=== PATIENT | male | born 1950 | race Two or more races ===

== ENCOUNTER 2021-03-31 09:48 | Outpatient (CLI) | payer OTHER | END 2021-03-31 10:05 | disposition home or self-care (01) | LOC: SONOGRAMA 09:48 | PROVIDERS: ATTEND Internal Medicine | DX: N40.0 Benign prostatic hyperplasia without lower urinary tract symptoms (principal) ==

== ENCOUNTER 2021-06-23 12:34 | Outpatient (CLI) | payer OTHER | END 2021-06-23 12:35 | disposition home or self-care (01) | LOC: LAB 12:34 | PROVIDERS: ATTEND Urology | DX: R97.20 Elevated prostate specific antigen [PSA] (principal) ==

== ENCOUNTER 2021-07-24 07:28 | Outpatient (CLI) | payer OTHER | END 2021-07-24 07:29 | disposition home or self-care (01) | LOC: SONOGRAMA 07:28 | PROVIDERS: ATTEND Urology | DX: R97.20 Elevated prostate specific antigen [PSA] (principal) ==

== ENCOUNTER 2021-08-11 08:02 | Outpatient (CLI) | payer OTHER | END 2021-08-11 08:06 | disposition home or self-care (01) | LOC: TOM 08:02 | PROVIDERS: ATTEND Urology | DX: R97.20 Elevated prostate specific antigen [PSA] (principal) ==

== ENCOUNTER 2021-09-02 07:16 | Outpatient (CLI) | payer OTHER | END 2021-09-02 07:20 | disposition home or self-care (01) | LOC: NUCLEAR 07:16 | PROVIDERS: ATTEND Urology | DX: R97.20 Elevated prostate specific antigen [PSA] (principal) | CPT/HCPCS: 78803; A9503 ==

== ENCOUNTER 2025-03-12 07:40 | Outpatient (CLI) | payer OTHER | END 2025-03-12 07:42 | disposition home or self-care (01) | LOC: MRI 07:40 | PROVIDERS: ATTEND Internal Medicine | DX: R25.1 Tremor, unspecified (principal); G20.C Parkinsonism, unspecified | CPT/HCPCS: 70552 ==